=== PATIENT | male | born 2000 | race Two or more races ===

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

== ENCOUNTER 2019-07-01 23:45 | Emergency (ER) | payer MEDICAID ==
[~2019-07-01] VITALS: Ht 167.6 cm; Wt 54.4 kg
--- NOTE | 2019-07-02 00:07 | NUR ---
PT BIBF C/O GENERALIZED WEAKNESS X 2 WEEKS. PT ALSO COMPLAINS OF TESTICULAR AND PELVIC PAIN. - NO TRAUMA. NO DRIFTS ON EXTREMITIES. 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 -NEUROLOGICAL DEFICITS. PT AAOX4, VSS, RESPIRATIONS EVEN AND UNLABORED ON RA W/ NAD NOTED. PT CONNECTED TO THE MONITOR AND POX.
--- NOTE | 2019-07-02 00:14 | NUR ---
DR CORDOVA AT BEDSIDE
--- NOTE | 2019-07-02 00:24 | NUR ---
SELLING MANAGER AT BEDSIDE FOR BLOOD DRAW
[2019-07-02 00:36] LABS: APPEARANCE,URINE Clear (CLEAR); BILIRUBIN,URINE Negative (NEGATIVE); BLOOD, URINE Negative Ery/uL (NEGATIVE); COLOR,URINE Yellow (YELLOW); KETONES,URINE Trace (NEGATIVE); LEUKOCYTE ESTERASE ,URINE Negative (NEGATIVE); NITRITE, URINE Negative (NEGATIVE); PH,URINE 5.5 (5.0-8.0); PROTEIN,URINE Negative (NEGATIVE); UGLUCOSE Negative (NEGATIVE); UROBILINOGEN,URINE 0.2 EU/dL (0.2)
[2019-07-02 00:48] LABS: BASOPHILS % (AUTO) 0.3 % (0.0-2.0); EOSINOPHILS % (AUTO) 0.5 % (0.0-6.0); HEMATOCRIT 40 % (39-51); HEMOGLOBIN 13.6 g/dL (13.5-17.5); LYMPHOCYTES # (AUTO) 2.3 /CMM (0.8-4.8); MEAN CORPUSCULAR HGB CONC 34 g/dl (31.0-36.0); MEAN CORPUSCULAR VOLUME 81 fL (80-96); MONOCYTES # (AUTO) 0.7 /CMM (0.1-1.30); MONOCYTES % (AUTO) 8.6 % (2.0-12.0); NEUTROPHILS % (AUTO) 61.6 % (43.0-81.0); PLATELET COUNT (AUTO) 154 /CMM (150-450); RED BLOOD CELL COUNT(AUTO) 4.98 MIL/uL (4.5-6.0); WHITE BLOOD COUNT (AUTO) 8.1 K/uL (4.3-11.0)
[2019-07-02 01:05] LABS: THYROID STIMULATING HORMONE 3.927 uIU/mL (0.358-3.74)
[2019-07-02 01:11] LABS: ALBUMIN 4.4 g/dL (3.4-5.0); BILIRUBIN,TOTAL 0.5 mg/dL (0.2-1.0); CALCIUM, SERUM 9.8 mg/dL (8.5-10.1); POTASSIUM 3.4 mmol/L (3.5-5.1); TOTAL PROTEIN, SERUM 8.3 g/dL (6.4-8.2)
--- NOTE | 2019-07-02 01:13 | NUR ---
ULTRASOUND AT BEDSIDE
[2019-07-02 01:14] LABS: BACTERIA,URINE None seen /HPF (None Seen); RBC,URINE 0-2 /HPF (0-2); SQUAMOUS EPITHELIAL CELL,UR Few /HPF (None Seen); WBC,URINE 0-2 /HPF (0-3)
[2019-07-02] MEDS ORDERED: ACETAMINOPHEN ES 500 MG TABLET ONE (01:26)
[2019-07-02] MEDS ORDERED: ACETAMINOPHEN ES 500 MG TABLET PO ONE (01:30)
[2019-07-02] MEDS ORDERED: ACETAMINOPHEN 650 MG/20.3 ML UDC ONE (01:52)
[2019-07-02] MEDS ORDERED: SULFAMETH/TRIMETH 800/160 MG 1 UDTAB TABLET ONE (01:59)
[2019-07-02] MEDS ORDERED: SULFAMETH/TRIMETH 800/160 MG 1 UDTAB TABLET PO ONE (02:00)
--- NOTE | 2019-07-02 02:33 | NUR ---
Patient discharged to home in stable condition. Written and verbal after care instructions given. Patient verbalizes understanding of instruction.Pt ambulatory with a steady gait
[2019-07-02 02:34] VITALS: BP 127/84
== END 2019-07-02 02:35 | disposition home or self-care (01) ==
LOC: ER 23:48
DX: R53.1 Weakness (principal); N45.2 Orchitis; F84.0 Autistic disorder; Z98.890 Other specified postprocedural states; Z88.1 Allergy status to other antibiotic agents
CPT/HCPCS: 36415; 76870-TC; 80053-TC; 81000-TC; 84443-TC; 85025-TC; 85610-TC